=== PATIENT | male | born 1960 | race Caucasian/White ===

== ENCOUNTER 2019-01-01 09:47 | Outpatient (CLI) | payer SELFPAY | END 2019-01-01 09:48 | disposition critical access hospital (66) | LOC: EMS 09:47 | PROVIDERS: ATTEND Surgery | DX: I46.9 Cardiac arrest, cause unspecified (principal); W17.89XA Other fall from one level to another, initial encounter; Y92.009 Unspecified place in unspecified non-institutional (private) residence as the place of occurrence of the external cause | CPT/HCPCS: A0425; A0433 ==

== ENCOUNTER 2019-01-01 09:58 | Emergency (ER) | payer SELFPAY ==
[2019-01-01] MEDS ORDERED: EPINEPHrine 4 MG in DEXTROSE 5% 246 ML IVP STA (10:13)
[2019-01-01] MEDS ORDERED: SODIUM CHLORIDE 0.9% 1,000 ML IV ONE (10:27)
[2019-01-01] MEDS ORDERED: SUCCINYLCHOLINE 200 MG/10 ML VIAL ONE (10:27)
[2019-01-01] MEDS ORDERED: ETOMIDATE 40 MG/20 ML VIAL IVP ONE ×2 (10:27→11:55)
--- NOTE | 2019-01-01 10:38 | ED Physician Documentation ---
History of Present Illness - Stated complaint Stated Complaint: CPR - Chief complaint Chief Complaint: Critical Care - History obtained from History obtained from: EMS - History of Present Illness Timing: Prior to arrival - Additonal information Additional information: Patient is a 58-year-old male with unknown history presenting via EMS. Patient is in cardiopulmonary arrest and unable to provide history. No family or friends at bedside. EMS reports that patient was attended at home and was performing handiwork on the roof when he likely fell. It is unclear if patient had a medical event prior to the fall or not.The fall was unwitnessed, however, bystanders heard a thud and evaluated patient and started CPR. Upon EMS arrival, patient was in ventricular fibrillation and was shocked several times, as well as given several doses of epinephrine and 1 dose of amiodarone.No other improving or worsening factors noted. Review of Systems Unable to obtain: Unresponsive PD PAST MEDICAL HISTORY - Past Medical History Cardiovascular: Hypertension Respiratory: None Endocrine/Autoimmune: None GI: None : None HEENT: Chronic vision loss Psych: None Musculoskeletal: Osteoarthritis Derm: None - Past Surgical History Past Surgical History: No HEENT: Tonsil/Adenoidectomy - Present Medications Home Medications: Ambulatory Orders Medication Instructions Recorded Confirmed Ibuprofen [Motrin] 400 mg PO Q6H PRN #30 tablet 12/02/13 oxyCODONE/ACET 5/325 [Percocet 5 1 - 2 each PO Q6H PRN #20 tablet 12/02/13 mg/325 mg] - Allergies Allergies/Adverse Reactions: Allergies Allergy/AdvReac Type Severity Reaction Status Date / Time No Known Drug Allergies Allergy Verified 12/02/13 10:46 - Social History Does the pt smoke?: No Smoking Status: Never smoker Does the pt drink ETOH?: Yes Does the pt have substance abuse?: No - POLST Patient has POLST: No PD ED PE NORMAL - Vitals Vital signs reviewed: Yes - General General: Other (Cardiopulmonary arrest with CPR in progress) - HEENT HEENT: Atraumatic, Other (Edward tube in place, patient being bagged). No: PERRL (Pupils approximately 3 mm fixed), Moist mucous membranes (Dry), Dentition benign (Poor dentition throughout) - Neck Neck: No bony TTP (No step offs or other trauma) - Cardiac Cardiac: Other (No pulses) - Respiratory Respiratory: Other (BVM with Edward tube) - Abdomen Abdomen: Non distended, Other (FAST exam negative) - Derm Derm: Other (Mottled, cool) - Neuro Eye Opening: None Motor: None Verbal: None GCS Score: 3 - Psych Psych: Other (Unable to evaluate) Results - Vitals Vitals: Vital Signs - 24 hr 01/01/19 01/01/19 01/01/19 10:02 10:05 10:10 Temperature 36.2 C L Heart Rate 0 L 0 L 0 L Respiratory 0 L 0 L 0 L Rate Blood Pressure 0/0 L 0/0 L 0/0 L 01/01/19 01/01/19 01/01/19 10:15 10:20 10:25 Temperature Heart Rate 0 L 0 L 0 L Respiratory 0 L 0 L 0 L Rate Blood Pressure 0/0 L 0/0 L 0/0 L 01/01/19 01/01/19 01/01/19 10:26 10:27 10:30 Temperature Heart Rate 81 82 79 Respiratory 11 L 19 20 Rate Blood Pressure 132/111 H 109/81 H 129/93 H 01/01/19 01/01/19 01/01/19 10:35 10:40 10:45 Temperature 36.2 C L Heart Rate 92 95 96 Respiratory 26 H 23 20 Rate Blood Pressure 117/98 H 106/93 H 115/88 H 01/01/19 01/01/19 01/01/19 10:50 11:00 11:10 Temperature Heart Rate 92 92 120 H Respiratory 20 20 34 H Rate Blood Pressure 109/68 112/82 H 133/90 H 01/01/19 01/01/19 11:15 11:20 Temperature 36.2 C L Heart Rate 108 H 120 H Respiratory 34 H 34 H Rate Blood Pressure 133/94 H 114/93 H Oxygen O2 Source Mechanical ventilator - EKG (time done) 1035 Rate: Rate (enter#) (94) Rhythm: Atrial fibrillation Intervals: Prolonged QT Ischemia: ST depression, Non specific changes - Labs Labs: Laboratory Tests 01/01/19 01/01/19 01/01/19 10:25 10:25 10:25 WBC 4.7 L RBC 2.09 L Hgb 6.6 L* Hct 20.8 L MCV 99.5 H MCH 31.5 H MCHC 31.7 L RDW 13.9 Plt Count 63 L MPV 9.1 Neut # (Auto) 2.0 Lymph # (Auto) 2.5 Mitchell # (Auto) 0.1 Eos # (Auto) 0.0 Baso # (Auto) 0.0 Absolute Nucleated RBC 0.01 Nucleated RBC % 0.2 PT 22.7 H INR 2.0 H APTT 56.2 H VBG pH VBG pCO2 VBG pO2 VBG HCO3 VBG Total CO2 VBG O2 Saturation VBG Base Excess Sodium 144 Potassium < 1.5 L* Chloride 127 H* Carbon Dioxide 10 L* Anion Gap 7.0 BUN 7 Creatinine 0.5 L Estimated GFR (MDRD) 171 Glucose 206 H Lactic Acid Calcium 3.3 L* Total Bilirubin 0.3 AST 176 H ALT 221 H Alkaline Phosphatase 19 L Troponin I Total Protein < 3.0 L Albumin 1.0 L Globulin 2.0 L Albumin/Globulin Ratio 0.5 L Lipase 104 H TSH Urine Color Urine Clarity Urine pH Ur Specific Weidman Urine Protein Urine Glucose (UA) Urine Ketones Urine Occult Blood Urine Nitrite Urine Bilirubin Urine Urobilinogen Ur Leukocyte Esterase Urine RBC Urine WBC Ur Epithelial Cells Ur Squamous Epith Cells Amorphous Sediment Urine Bacteria Urine Mucus Ur Microscopic Review Urine Culture Comments Salicylates < 6.0 Urine Opiates Screen Ur Oxycodone Screen Urine Methadone Screen Ur Propoxyphene Screen Acetaminophen < 10 L Ur Barbiturates Screen Ur Tricyclics Screen Ur Phencyclidine Scrn Ur Amphetamine Screen U Methamphetamines Scrn U Benzodiazepines Scrn Urine Cocaine Screen U Cannabinoids Screen Ethyl Alcohol < 5.0 01/01/19 01/01/19 01/01/19 10:25 10:25 10:25 WBC RBC Hgb Hct MCV MCH MCHC RDW Plt Count MPV Neut # (Auto) Lymph # (Auto) Mitchell # (Auto) Eos # (Auto) Baso # (Auto) Absolute Nucleated RBC Nucleated RBC % PT INR APTT VBG pH VBG pCO2 VBG pO2 VBG HCO3 VBG Total CO2 VBG O2 Saturation VBG Base Excess Sodium Potassium Chloride Carbon Dioxide Anion Gap BUN Creatinine Estimated GFR (MDRD) Glucose Lactic Acid 7.8 H* Calcium Total Bilirubin AST ALT Alkaline Phosphatase Troponin I 0.09 Total Protein Albumin Globulin Albumin/Globulin Ratio Lipase TSH 3.87 Urine Color Urine Clarity Urine pH Ur Specific Weidman Urine Protein Urine Glucose (UA) Urine Ketones Urine Occult Blood Urine Nitrite Urine Bilirubin Urine Urobilinogen Ur Leukocyte Esterase Urine RBC Urine WBC Ur Epithelial Cells Ur Squamous Epith Cells Amorphous Sediment Urine Bacteria Urine Mucus Ur Microscopic Review Urine Culture Comments Salicylates Urine Opiates Screen Ur Oxycodone Screen Urine Methadone Screen Ur Propoxyphene Screen Acetaminophen Ur Barbiturates Screen Ur Tricyclics Screen Ur Phencyclidine Scrn Ur Amphetamine Screen U Methamphetamines Scrn U Benzodiazepines Scrn Urine Cocaine Screen U Cannabinoids Screen Ethyl Alcohol 01/01/19 01/01/19 10:50 11:45 WBC RBC Hgb Hct MCV MCH MCHC RDW Plt Count MPV Neut # (Auto) Lymph # (Auto) Mitchell # (Auto) Eos # (Auto) Baso # (Auto) Absolute Nucleated RBC Nucleated RBC % PT INR APTT VBG pH 7.007 L VBG pCO2 68.7 H VBG pO2 30.1 VBG HCO3 16.8 L VBG Total CO2 18.9 L VBG O2 Saturation 40.8 L VBG Base Excess -15.7 L Sodium Potassium Chloride Carbon Dioxide Anion Gap BUN Creatinine Estimated GFR (MDRD) Glucose Lactic Acid Calcium Total Bilirubin AST ALT Alkaline Phosphatase Troponin I Total Protein Albumin Globulin Albumin/Globulin Ratio Lipase TSH Urine Color YELLOW Urine Clarity CLOUDY Urine pH 6.0 Ur Specific Weidman 1.025 Urine Protein 100 H Urine Glucose (UA) NEGATIVE Urine Ketones NEGATIVE Urine Occult Blood LARGE H Urine Nitrite NEGATIVE Urine Bilirubin NEGATIVE Urine Urobilinogen 0.2 (NORMAL) Ur Leukocyte Esterase SMALL H Urine RBC 6-10 H Urine WBC 6-10 H Ur Epithelial Cells FEW Transitional Ur Squamous Epith Cells FEW Squamous Amorphous Sediment Moderate Urine Bacteria Many H Urine Mucus Marked Strands Ur Microscopic Review INDICATED Urine Culture Comments INDICATED Salicylates Urine Opiates Screen NEGATIVE Ur Oxycodone Screen NEGATIVE Urine Methadone Screen NEGATIVE Ur Propoxyphene Screen NEGATIVE Acetaminophen Ur Barbiturates Screen NEGATIVE Ur Tricyclics Screen NEGATIVE Ur Phencyclidine Scrn NEGATIVE Ur Amphetamine Screen NEGATIVE U Methamphetamines Scrn NEGATIVE U Benzodiazepines Scrn NEGATIVE Urine Cocaine Screen NEGATIVE U Cannabinoids Screen POSITIVE H Ethyl Alcohol Procedures - Intubation Provider: Emergency physician Medications: Etomidate, Succinylcholine Blade: Glidescope Tube: Size-enter number (7.5), Cuffed Route: Oral Confirmation: Direct visualization, Bilateral breath sounds, No abdominal breath sound, End tidal CO2, Pulse ox, Chest xray Complications: No compications - FAST exam (time) 1000 FAST exam: No: Free fluid RUQ, Free fluid LUQ, Pericardial effusion PD MEDICAL DECISION MAKING - ED course Complexity details: reviewed results, re-evaluated patient, considered differential, d/w clinical program consultant ED course: Patient presenting with likely traumatic induced cardiopulmonary arrest, however, it is unclear if patient suffered an event which then caused him to fall. CPR is in progress and patient has received multiple defibrillations, as well as multiple doses of epinephrine and 1 dose of amiodarone.EMS reports ventricular fibrillation and upon arrival, CPR continues. Patient received another dose of epinephrine, as well as amiodarone 150 mg. EMS did note that as patient was being transferred to the hospital, rhythm was now PEA. Upon continued CPR and pulse and monitor checks, patient continued to be in PEA. Physician performed bedside FAST exam which did not find evidence of intra- abdominal bleeding or pericardial effusion. It was noted that there was some mild cardiac activity on ultrasound. Patient remained in PEA with a low rate, but no pulses. Patient continued to receive multiple doses of epinephrine, as well as doses of atropine.Patient was easy to support from a respiratory standpoint and Edward airway remained in place during CPR resuscitation. Blood work including bedside blood glucose obtained. Blood glucose about 240.Patient continued on IV fluids and was not hypothermic.Upon repeat pulse check, patient noted to have pulses and CPR was stopped. Patient started on epinephrine drip.At that time, physician performed RSI and endotracheal intubation without complication which was confirmed in multiple ways including chest x-ray.EKG obtained which did have multiple abnormalities including ST depression, but no other obvious STEMI changes.Chest and pelvis portable x-rays performed to ev aluate tube placement, which was appropriate. Additionally, no obvious signs of massive hemothorax, pneumothorax, pelvic fracture noted.Patient sent to CT for further evaluation.While in CT, patient was slightly overbreathing the vent and given one-time dose of Ativan. [facility] contacted and medical team sent for helicopter retrieval of patient.Lab work also returned with multip le abnormalities including low hemoglobin at 6.6. Type and screen had been sent. Both potassium and calcium were precipitously low and orders were placed to replace both electrolytes. [facility] team had arrived and able to assist. As opposed to waiting for blood products from within the hospital, [facility] team started blood product. [facility] also assisted with other medications including pain control with fentanyl. CT chest imaging returned and found left- sided pneumothorax with multiple rib fractures, mid sternal fracture, and right- sided rib fractures. General surgeon available and willing to place a chest tube in the ED prior to transfer. Repeat chest x-ray performed after such which indicated appropriate placement and no other complications. During procedure, patient was moving somewhat and per general surgery request, patient re-sedated and re-paralyzed with etomidate and vecuronium. Repeat labs also drawn, but not yet resulted.CT head and cervical spine returned unremarkable. CT Abdomen/pelvis did not show evidence to internal organs or other complications but transverse process fractures to L2 and L3. Patient remains in spinal precautions. Patient to be transferred and receive further care at [facility]. Spoke with [facility] ER physician again to provide updates and she is amenable to continue plan and transfer. - Critical Care Time(min): 70 Time Includes: Direct patient care, Review records, Reassess patient, Document care, Coordinate care, Medical consult Data interpretation: Labs, Pulse ox, CXR, See progress note Procedures excluded from critical care time: Intubation, EKG Departure - Departure Disposition: 02 Transfer Acute Care Hosp Clinical Impression: Cardiac arrest Discharge Date/Time: 01/01/19 12:22
[2019-01-01 10:47] LABS: BASOPHILS % (AUTO) 0.6 %; EOSINOPHILS % (AUTO) 0.8 %; LYMPHOCYTES # (AUTO) 2.5 10^3/uL (1.5-3.5); LYMPHOCYTES % (AUTO) 53.8 %; MEAN CORPUSCULAR HEMOGLOBIN 31.5 pg (27.0-31.0); MEAN CORPUSCULAR HGB CONC 31.7 g/dL (32.0-36.0); MEAN CORPUSCULAR VOLUME 99.5 fL (80.0-94.0); MEAN PLATELET VOLUME 9.1 fL (7.4-11.4); MONOCYTES # (AUTO) 0.1 10^3/uL (0.0-1.0); NEUTROPHILS % (AUTO) 41.8 %; PLT - PLATELET COUNT 63 10^3/uL (130-450); RED BLOOD COUNT 2.09 10^6/uL (4.70-6.10); RED CELL DISTRIBUTION WIDTH 13.9 % (12.0-15.0); WHITE BLOOD COUNT 4.7 x10^3/uL (4.8-10.8)
[2019-01-01 10:49] LABS: HGB - HEMOGLOBIN 6.6 g/dL (14.0-18.0)
[2019-01-01 10:51] LABS: PT - PROTHROMBIN TIME 22.7 secs (9.9-12.6)
[2019-01-01] MEDS ORDERED: LORazepam 2 MG/ML VIAL IVP STA (10:59)
[2019-01-01 11:01] LABS: MUDS CUTOFF CONCENTRATIONS CUTOFF CONC BELOW:
[2019-01-01 11:03] LABS: PARTIAL THROMBOPLASTIN TIME 56.2 secs (24.9-33.3)
[2019-01-01 11:07] LABS: BILIRUBIN,URINE NEGATIVE (NEGATIVE); GLUCOSE, URINE (UA) NEGATIVE (NEGATIVE); KETONES,URINE (UA) NEGATIVE (NEGATIVE); LEUKOCYTE ESTERASE, URINE SMALL (NEGATIVE); NITRITE,URINE NEGATIVE (NEGATIVE); OCCULT BLOOD,URINE LARGE (NEGATIVE); PROTEIN,URINE 100 mg/dL (NEGATIVE); UROBILINOGEN,URINE 0.2 (NORMAL) E.U./dL (NORMAL)
[2019-01-01] MEDS ORDERED: LORazepam 2 MG/ML VIAL ONE (11:08)
[2019-01-01 11:10] LABS: CLARITY,URINE CLOUDY (CLEAR)
[2019-01-01 11:17] LABS: ACETAMINOPHEN < 10 ug/mL (10-30); ALBUMIN/GLOBULIN RATIO 0.5 (1.0-2.2); ALKALINE PHOSPHATASE 19 IU/L (42-121); ALT ALANINE AMINOTRANSFERASE 221 IU/L (10-60); AST ASPARTATE AMINOTRANSFERASE 176 IU/L (10-42); BILIRUBIN,TOTAL 0.3 mg/dL (0.2-1.0); BUN - BLOOD UREA NITROGEN 7 mg/dL (6-20); CREATININE 0.5 mg/dL (0.6-1.2); GFR - MDRD 171 (>89); GLUCOSE 206 mg/dL (70-100); LIPASE 104 U/L (22-51); SALICYLATE < 6.0 mg/dL; SODIUM 144 mmol/L (135-145)
[2019-01-01 11:20] LABS: AMORPHOUS SEDIMENT,UR Moderate /LPF; BACTERIA,URINE Many /HPF (None Seen); EPITHELIAL CELLS,UR FEW Transitional /HPF (<= Few); MUCUS,URINE Marked Strands; SQUAMOUS EPITHELIAL CELL,UR FEW Squamous (<= Few)
[2019-01-01 11:20] LABS: CALCIUM 3.3 mg/dL (8.5-10.3); CARBON DIOXIDE - CO2 10 mmol/L (21-32); CHLORIDE 127 mmol/L (101-111)
[2019-01-01 11:21] LABS: AMPHETAMINE SCREEN,URINE NEGATIVE (NEGATIVE); BENZODIAZEPINES SCREEN, URINE NEGATIVE (NEGATIVE); COCAINE SCREEN URINE NEGATIVE (NEGATIVE); METHADONE SCREEN, URINE NEGATIVE (NEGATIVE); METHAMPHETAMINES SCREEN, URINE NEGATIVE (NEGATIVE); OPIATE SCREEN, URINE NEGATIVE (NEGATIVE); OXYCODONE SCREEN, URINE NEGATIVE (NEGATIVE); PROPOXYPHENE SCREEN, URINE NEGATIVE (NEGATIVE); TRICYCLIC ANTIDEPRESSANT,URINE NEGATIVE (NEGATIVE)
[2019-01-01] MEDS ORDERED: POTASSIUM CHLOR 20 MEQ/100 ML 20 MEQ/100 ML BAG IV ONE (11:27)
[2019-01-01] MEDS ORDERED: IOVERSOL 320 100 ML VIAL IVP ONE (11:27)
[2019-01-01] MEDS ORDERED: CALCIUM GLUCONATE 2,000 MG in SODIUM CHLORIDE 0.9% 100ML 100 ML IV STA (11:28)
--- NOTE | 2019-01-01 11:29 | CT Report ---
Reason: fall, cpr Procedure Date: 01/01/2019 Accession Number: [id number] / [id number] Procedure: CT - HEAD WO CPT Code: FULL RESULT: EXAM: CT HEAD EXAM DATE: 01/01/2019 10:57 AM. CLINICAL HISTORY: Trauma. Fall 20 feet. CPR. COMPARISON: None. TECHNIQUE: Multiaxial CT images were obtained from the foramen magnum to the vertex. Reformats: Sagittal and coronal. IV contrast: None. In accordance with CT protocol optimization, one or more of the following dose reduction techniques were utilized for this exam: automated exposure control, adjustment of mA and/or KV based on patient size, or use of iterative reconstructive technique. FINDINGS: Parenchyma: No evidence for parenchymal hemorrhage. Low-attenuation area is seen along the medial right internal capsule measuring 7 mm may represent a remote lacunar infarct or prominent perivascular space. No midline shift. No mass-effect. Grimes-white matter differentiation remains visualized currently. Extraaxial Spaces: Normal for age. No subdural or epidural collections identified. Ventricles: Normal in size and position. Sinuses and Orbits: Fluid level within the left maxillary sinus. Mild bilateral ethmoid sinus disease. Mastoid air cells are clear. Bones: No evidence of fracture or calvarial defect. Other: Globes and orbits are unremarkable. Endotracheal tube partly visualized. IMPRESSION: 1. No acute intracranial abnormality is identified. 2. No acute fracture. RADIA
[2019-01-01] MEDS ORDERED: POTASSIUM CHLOR 10 MEQ/100 ML 10 MEQ/100 ML BAG IV ONE (11:35)
--- NOTE | 2019-01-01 11:38 | XRAY Report ---
Reason: chest pain Procedure Date: 01/01/2019 Accession Number: [id number] / [id number] Procedure: XR - Chest 1 View X-Ray CPT Code: 05473 FULL RESULT: EXAM: CHEST RADIOGRAPHY EXAM DATE: 01/01/2019 10:21 AM. CLINICAL HISTORY: Chest pain. COMPARISON: None. TECHNIQUE: 1 view. FINDINGS: Lungs/Pleura: Extensive groundglass opacifications throughout the upper lobes. Mediastinum: Within exam limitations, the cardiomediastinal contour is normal. Other: The ET tube is positioned 3.1 cm above the octavia. IMPRESSION: 1. The ET tube is positioned 3.1 cm above the octavia. 2. Extensive groundglass opacifications throughout the upper lobes. RADIA
--- NOTE | 2019-01-01 11:42 | CT Report ---
Reason: fall, cpr Procedure Date: 01/01/2019 Accession Number: [id number] / [id number] Procedure: CT - CHEST W CPT Code: FULL RESULT: EXAM: CT CHEST EXAM DATE: 01/01/2019 11:01 AM. CLINICAL HISTORY: Fall. Trauma. CPR. Intubated. COMPARISONS: None. TECHNIQUE: Routine helical CT imaging was performed through the chest. IV contrast: 100 cc of Optiray 320. Reconstructions: Coronal and sagittal. In accordance with CT protocol optimization, one or more of the following dose reduction techniques were utilized for this exam: automated exposure control, adjustment of mA and/or KV based on patient size, or use of iterative reconstructive technique. FINDINGS: Lungs/Pleura: There is a moderate left pneumothorax. Dense posterior left upper and left lower lobe consolidative changes also seen throughout the right upper lobe with associated groundglass opacities and dense consolidative changes in the superior aspect of the right lower lobe. No right pneumothorax. No pleural effusions. Mediastinum: Heart size is normal. Coronary artery calcified plaque. No mediastinal hematoma. No evidence of thoracic aortic dissection or pseudoaneurysm. No enlarged mediastinal or hilar lymph nodes. Endotracheal tube present in expected position. Bones: Degenerative changes of the thoracic spine. Nondisplaced anterior mid sternal fracture. Right anterior medial first, second, third, fourth, fifth, lateral seventh rib fractures. In addition, right medial posterior second, third, medial seventh, eighth, posterior ninth and 10th and 11th rib fractures. On the left, there is a anterior lateral left, displaced anterior medial left second, angulated anterior medial left third, fourth, displaced anterior medial fifth, angulated anterior medial sixth, displaced anterior medial seventh, nearly completely displaced lateral eighth nondisplaced slightly angulated lateral ninth and 10th rib fractures. No clear evidence for segmental or flail chest. Adjacent subcutaneous air/gas seen in the left chest wall. Adjacent soft tissue edema. Visualized Abdomen: Fatty liver. The included portions of the spleen, adrenals, kidneys, pancreas and upper abdominal bowel are unremarkable as well as the gallbladder. Abdominal aortic calcified plaque. Other: None. IMPRESSION: 1. Moderate left pneumothorax. 2. Multifocal consolidative changes and groundglass opacities largely in the right upper lobe, medial superior right lower lobe and left lower lobe which may be due to contusion. Aspiration is also a consideration. No pleural effusions. 3. No mediastinal hematoma. No evidence of thoracic aortic pseudoaneurysm or occlusion. 4. Multiple left-sided rib fractures, second through 10th and multiple right-sided rib fractures, largely present right medial, anterior and posterior, medial rib fractures. See above. Nondisplaced midsternal fracture. RADIA The above call report findings were discussed with Xiomara Jasso by Dr. Jason Davis at 11:33 AM on 01/01/2019.
--- NOTE | 2019-01-01 11:50 | CT Report ---
Reason: fall, cpr Procedure Date: 01/01/2019 Accession Number: [id number] / [id number] Procedure: CT - Abdomen/Pelvis W CPT Code: FULL RESULT: EXAM: CT ABDOMEN AND PELVIS EXAM DATE: 01/01/2019 11:01 AM. CLINICAL HISTORY: Fall, cpr. COMPARISONS: None. TECHNIQUE: Routine helical CT imaging was performed through the abdomen and pelvis. IV contrast: 100 mL Opti 320. Enteric contrast: No. Reconstructions: Coronal and sagittal. In accordance with CT protocol optimization, one or more of the following dose reduction techniques were utilized for this exam: automated exposure control, adjustment of mA and/or KV based on patient size, or use of iterative reconstructive technique. FINDINGS: Lung Bases: Partially visualized left-sided pneumothorax with focal consolidation in the left and right lung bases posteriorly. Liver: Normal. No masses. Gallbladder/Bile Ducts: Unremarkable. Spleen: Normal. Pancreas: Normal. Adrenal Glands: Normal. Kidneys: Normal. No masses or hydronephrosis. Peritoneal Cavity/Bowel: Diverticulosis without diverticulitis. The appendix is well visualized and normal. Pelvic Organs: There is a Hightower catheter in the bladder. Vasculature: No aneurysms or other significant abnormality. Bones: Nondisplaced fracture of the right 11th rib. Nondisplaced fracture of the right 10th rib. Minimally displaced fracture of the right ninth rib medially. Possible minimally displaced fracture of the right seventh rib laterally. Displaced fracture of the left eighth and seventh rib laterally. Minimally displaced fractures of the right and left transverse processes at L2 and right transverse process of L3 Other: None. IMPRESSION: 1. Partially visualized left-sided pneumothorax with focal consolidations in the posterior aspect of the right and left lungs. Please see separate chest CT report from today for additional supradiaphragmatic findings. 2. Multiple bilateral rib fractures, as above. 3. Minimally displaced fractures of the right and left transverse processes at L2 and right transverse process at L3. 4. No evidence of solid organ injury in the abdomen or pelvis. No evidence of bowel injury. No abdominal aortic injury. RADIA
[2019-01-01] MEDS ORDERED: LIDOCAINE 2% 10 ML MDV ONE (11:51)
--- NOTE | 2019-01-01 11:55 | XRAY Report ---
Reason: fall, cpr Procedure Date: 01/01/2019 Accession Number: [id number] / [id number] Procedure: XR - Pelvis 1 View CPT Code: FULL RESULT: EXAM: PELVIS RADIOGRAPHY EXAM DATE: 01/01/2019 10:21 AM. CLINICAL HISTORY: Fall. Chest pain. CPR. COMPARISON: None. TECHNIQUE: 1 view. FINDINGS: Bones: No acute fracture or bony lesion. Upper iliac wings are not included. Joints: Normal alignment. Mild degenerative changes of both hip joints. No dislocation. Soft Tissues: Normal. No soft tissue swelling. IMPRESSION: 1. No acute osseous abnormalities. Normal alignment. RADIA
[2019-01-01] MEDS ORDERED: ROCURONIUM 50 MG/5 ML VIAL IVP ONE (11:56)
--- NOTE | 2019-01-01 11:56 | CT Report ---
Reason: cpr Procedure Date: 01/01/2019 Accession Number: [id number] / [id number] Procedure: CT - CERVICAL SPINE WO CPT Code: FULL RESULT: EXAM: CT CERVICAL SPINE WITHOUT CONTRAST DATE: 01/01/2019 10:56 AM. HISTORY: Cpr. COMPARISONS: Chest CT dated 01/01/2019. TECHNIQUE: Thin-section axial images were acquired of the cervical spine without contrast. Post-processing: Coronal and sagittal reformats. Other: None. In accordance with CT protocol optimization, one or more of the following dose reduction techniques were utilized for this exam: automated exposure control, adjustment of mA and/or KV based on patient size, or use of iterative reconstructive technique. FINDINGS: Alignment: No scoliosis or spondylolisthesis. Bones: Displaced fracture of the left first rib. Displaced fracture of the right first rib. Partially visualized fracture of the right fourth rib. Interspace Levels/Facets: C1-C2: Unremarkable. C2-C3: Unremarkable. C3-C4: Unremarkable. C4-C5: Unremarkable. C5-C6: Unremarkable. C6-C7: Moderate degenerative disk disease and severe right neuroforaminal. C7-T1: Unremarkable. Musculature: Normal. No fatty atrophy. Other: Partially visualized ET tube in place. Partially visualized left-sided pneumothorax. IMPRESSION: 1. No cervical spine fracture or listhesis. 2. Bilateral rib fractures and left-sided pneumothorax described and seen to better advantage on the recent chest CT. RADIA
[2019-01-01] MEDS ORDERED: POTASSIUM CHLOR 10 MEQ/100 ML 10 MEQ/100 ML BAG IV SCH (12:00)
[2019-01-01 12:12] LABS: VBG PCO2 68.7 mmHg (41-51); VBG PH 7.007 (7.31-7.41); VBG PO2 30.1 mmHg (25-47); VBG TOTAL CO2 18.9 mmol/L (24-29)
[2019-01-01 12:13] LABS: VBG BASE EXCESS -15.7 mmol/L (-2 - +2)
[2019-01-01 12:36] LABS: TOTAL PROTEIN < 3.0 g/dL (6.7-8.2)
[2019-01-01 13:30] VITALS: BP 114/93
--- NOTE | 2019-01-02 05:50 | XRAY Report ---
Reason: LINE PLACEMENT Procedure Date: 01/01/2019 Accession Number: [id number] / [id number] Procedure: XR - Chest for Line Placement CPT Code: FULL RESULT: EXAM: CHEST RADIOGRAPHY EXAM DATE: 01/01/2019 12:10 PM. CLINICAL HISTORY: Line placement. COMPARISON: 01/01/2019 10:21 AM CHEST W/ 01/01/2019 11:01 AM. TECHNIQUE: 1 view. FINDINGS: Overlying defibrillator pads and EKG leads are noted. Lungs/Pleura: There is bilateral upper lobe predominant confluent consolidation as seen on CT. The known left pneumothorax is not well visualized. Lucency surrounding the mediastinum is seen bilaterally, likely related to the pneumothorax and adjacent pulmonary consolidation. Mediastinum: The cardiomediastinal silhouette is not enlarged accounting for AP technique. Other: The endotracheal tube terminates approximately 4 cm above the octavia and below the thoracic inlet. A left chest tube is seen coursing towards the lung apex with tip and sidehole marker within the thorax. There is associated soft tissue emphysema. Rib fractures are noted, better delineated on the chest CT. IMPRESSION: Interval chest drain placement as described. RADIA
== END 2019-01-01 12:22 | disposition short-term general hospital (02) ==
LOC: EDUNIT# → ED 09:58
DX: I46.9 Cardiac arrest, cause unspecified (principal); I49.01 Ventricular fibrillation; S27.0XXA Traumatic pneumothorax, initial encounter; S22.43XA Multiple fractures of ribs, bilateral, initial encounter for closed fracture; S22.22XA Fracture of body of sternum, initial encounter for closed fracture; S32.029A Unspecified fracture of second lumbar vertebra, initial encounter for closed fracture; S32.039A Unspecified fracture of third lumbar vertebra, initial encounter for closed fracture; W13.2XXA Fall from, out of or through roof, initial encounter; Y93.H3 Activity, building and construction; Y92.008 Other place in unspecified non-institutional (private) residence as the place of occurrence of the external cause; I48.91 Unspecified atrial fibrillation; I48.92 Unspecified atrial flutter; I45.81 Long QT syndrome; I45.2 Bifascicular block; I10 Essential (primary) hypertension
CPT/HCPCS: 31500; 32551; 36415; 70450; 71045; 71260; 72125; 72170; 74177; 80320; 80329; 81001; 82803; 83605; 83690; 84484; 85610; 85730; 87086; 92950; 93005; 94770; 96365; 96368; 96375; 99291; J0330; J2060; Q9967; 80048; 80053; 80306; 80307; 81003; 84443; 85025; 86850; 86900; 86901; 99285